=== PATIENT | female | born 1970 | race Caucasian/White ===

== ENCOUNTER → 2017-07-23 | Outpatient (CLI) | payer OTHER, MEDICAID | LOC: CIMAGING 20:07 | PROVIDERS: ATTEND Family Medicine Sports Medicine | DX: M79.672 Pain in left foot (principal) | CPT/HCPCS: 73630-PO ==

== ENCOUNTER → 2017-10-28 | Outpatient (CLI) | payer OTHER | LOC: FIMAGING 18:46 | PROVIDERS: ATTEND Family Medicine Sports Medicine | DX: M79.641 Pain in right hand (principal) ==

== ENCOUNTER → 2018-10-19 | Outpatient (CLI) | payer OTHER | LOC: CIMAGING 12:56 | PROVIDERS: ATTEND Family Medicine Sports Medicine | DX: R05 Cough (principal); R10.9 Unspecified abdominal pain; R11.2 Nausea with vomiting, unspecified | CPT/HCPCS: 74022-PO ==